=== PATIENT | female | born 1955 | race Caucasian/White ===

== ENCOUNTER → 2017-10-28 | Outpatient (CLI) | payer OTHER ==
[~2017-10-28] MED LIST: ALE70 PO; AMI10 PO; AMIT-104 PO; AMIT100T53 PO; AMLO-98 PO; AMLO-99 PO; ATOR40TA69 PO; BENA40TA52 PO; BLOO-1511 MC; BLOO1STR16 MC; CALC-488 PO; CALC-547 PO; CALC500T6 PO; CINN500C12 PO; CLIN300C99 PO; DUL30 PO; DULO30CA6 PO; DULO60CA51 PO; DULO60CA56 PO; ELET20TA2 PO; ESTE625 PO; FERR27TA3 PO; FEXO-67 PO; FEXO1TAB39 PO; FEXO1TAB60 PO; FLUT16SP19 NS; FROV2.5T6 PO; GLI5 PO; INSU100I30 SQ; INSU100I34 SQ; INSU100I35; IRON18TA2 PO; LAN30PT PO; LANI SQ; LANS30CA70 PO; LEV500 PO; LORA-630 PO; MAGN1TAB32 PO; MES400 PO; METF-420 PO; METR250 PO; MULT-1085 PO; MULT-865 PO; MULT-912 PO; OLME40TA28 PO; ONDA4TAB PO; OXYC-865 PO; POLY119P24 PO; POTA-23 PO; POTA20TA94 PO; PRE20 PO; PRO25 PO; PROL80 PO; PROP80CA3 PO; PROP80TA25 PO; RIZA10 PO; RIZA10TA PO; SULF500T48 PO; TRAM-420 PO
== END ==
LOC: LAB 13:19
PROVIDERS: ATTEND Emergency Medicine
DX: E11.9 Type 2 diabetes mellitus without complications (principal)
CPT/HCPCS: 36415; 82465; 83036; 83718; 84478

== ENCOUNTER → 2018-02-07 | Outpatient (CLI) | payer OTHER | LOC: LAB 08:34 | PROVIDERS: ATTEND Emergency Medicine | DX: E11.9 Type 2 diabetes mellitus without complications (principal) | CPT/HCPCS: 36415; 83036 ==

== ENCOUNTER → 2018-05-03 | Outpatient (CLI) | payer OTHER ==
[~2018-05-03] MED LIST changes: +BLOO-960 MC; +CIPR-214 PO; +LANC-1295 MC; +METF-421 PO
[2018-05-03 11:22] LABS: PLATELET COUNT, AUTOMATED 365 K/uL (150-450)
== END ==
LOC: LAB 11:00
PROVIDERS: ATTEND Emergency Medicine
DX: E11.9 Type 2 diabetes mellitus without complications (principal); R11.10 Vomiting, unspecified; M81.0 Age-related osteoporosis without current pathological fracture
CPT/HCPCS: 82040; 82247; 82310; 82374; 82435; 82565; 82947; 83036; 83970; 84075; 84132; 84155; 84295; 84450; 84460; 84520; 85025

== ENCOUNTER → 2018-05-04 | Outpatient (CLI) | payer OTHER | LOC: LAB 10:21 | PROVIDERS: ATTEND Emergency Medicine | DX: R11.10 Vomiting, unspecified (principal) | CPT/HCPCS: 81001 ==

== ENCOUNTER → 2018-05-08 | Outpatient (CLI) | payer OTHER | LOC: LAB 17:19 → EDSTATUS 17:21 → LAB 17:22 | PROVIDERS: ATTEND Emergency Medicine | DX: D64.9 Anemia, unspecified (principal) | CPT/HCPCS: 82274 ==

== ENCOUNTER → 2018-05-11 | Outpatient (CLI) | payer OTHER | LOC: LAB 10:16 | PROVIDERS: ATTEND Emergency Medicine | DX: R41.3 Other amnesia (principal); D64.9 Anemia, unspecified | CPT/HCPCS: 36415; 82607; 83540; 83550 ==